=== PATIENT | male | born 1950 | race Two or more races ===

== ENCOUNTER 2021-12-13 11:57 | Inpatient (IN) | payer OTHER ==
[~2021-12-13] VITALS: Ht 180.3 cm; Wt 80.2 kg
[2021-12-13 12:56] LABS: Basophils # (auto) 0.1 10 ^3/uL (0-0.2); Basophils % (auto) 1.1 % (0.0-2.0); Eosinophils # (auto) 0.2 10 ^3/uL (0-0.8); Eosinophils % (auto) 2.6 % (0.0-7.0); Hematocrit 39.1 % (41.0-53.0); Hemoglobin 13.2 g/dL (13.5-17.5); Lymphocytes # (auto) 1.9 10 ^3/uL (0.4-5.4); Lymphocytes % (auto) 28.3 % (10.0-50.0); Mean Corpuscular Hemoglobin 29.1 pg (28.0-32.0); Mean Corpuscular Hgb Conc. 33.7 g/dL (32.0-36.0); Mean Corpuscular Volume 86.4 fL (80.0-100.0); Monocytes # (auto) 0.4 10 ^3/uL (0-1.3); Monocytes % (auto) 5.9 % (0.0-12.0); Neutrophils # (auto) 4.1 10 ^3/uL (1.6-8.6); Neutrophils % (auto) 62.1 % (37.0-80.0); Nucleated Red Blood Cells % 0.1 %; Red Blood Cells 4.53 10^6/uL (4.5-5.90); Red Cell Distribution Width 13.4 % (11.8-14.3); White Blood Cell 6.6 10^3/uL (4.4-10.8)
[2021-12-13 13:01] LABS: Urine Bacteria NONE SEEN /hpf (None Seen); Urine Blood 3+ /uL (Negative); Urine Budding Yeast FEW /hpf (None Seen); Urine Mucus FEW (None Seen); Urine Specific Gravity 1.024 (1.001-1.035); Urine WBC 41 /hpf (0 - 3)
[2021-12-13 13:17] LABS: Albumin 3.3 g/dL (3.4-5.0); BUN/Creatinine Ratio 16.5; Calcium 8.6 mg/dL (8.5-10.1); Potassium 4.4 mmol/L (3.5-5.1)
[2021-12-13 13:19] LABS: Bilirubin, Total 0.3 mg/dL (0.2-1.0); Total Protein 7.2 g/dL (6.4-8.2)
[2021-12-13 13:21] LABS: INR 0.99 (0.9-1.15); Partial Thromboplastin Time 28.3 sec (24.6-33.4)
[2021-12-13] MEDS ORDERED: ACETAMINOPHEN 325 MG TAB PO PRN (23:15)
[2021-12-13] MEDS ORDERED: DEXTROSE (50%) 50ML SYRG IV PRN (23:15)
[2021-12-13] MEDS ORDERED: HYDROcodone-ACET 5/325MG TAB PO PRN (23:15)
[2021-12-13] MEDS ORDERED: ONDANSETRON HCL 4 MG/2 ML VIAL IV PRN (23:15)
[2021-12-13] MEDS ORDERED: cefTRIAXone 1GM/50ML D5W 50 ML IV ONE (23:15)
[2021-12-13] MEDS ORDERED: DOCUSATE SOD 100 MG CAP PO PRN (23:15)
[2021-12-14] MEDS ORDERED: MORPHINE SULFATE INJ 2 MG/ml SYRG IV PRN
[2021-12-14] MEDS ORDERED: NITROGLYCERIN 0.4 MG SL TAB SL PRN
[2021-12-14] MEDS: ACCU-CHEK COMFORT CURVE STRIP VI SCH ×5 (03:04→22:16)
[2021-12-14] MEDS: InsuLIN REG 1unit/0.01ml Soln (100units/ml) SC SCH ×5 (03:04→22:22)
[2021-12-14 05:05] LABS: Basophils # (auto) 0.1 10 ^3/uL (0-0.2); Eosinophils # (auto) 0.2 10 ^3/uL (0-0.8); Eosinophils % (auto) 2.6 % (0.0-7.0); Hemoglobin 13.6 g/dL (13.5-17.5); Lymphocytes % (auto) 22.9 % (10.0-50.0); Mean Corpuscular Hemoglobin 30.5 pg (28.0-32.0); Mean Corpuscular Hgb Conc. 34.9 g/dL (32.0-36.0); Mean Corpuscular Volume 87.4 fL (80.0-100.0); Monocytes # (auto) 0.4 10 ^3/uL (0-1.3); Monocytes % (auto) 5.2 % (0.0-12.0); Neutrophils # (auto) 5.9 10 ^3/uL (1.6-8.6); Neutrophils % (auto) 68.3 % (37.0-80.0); Red Blood Cells 4.46 10^6/uL (4.5-5.90); Red Cell Distribution Width 13.4 % (11.8-14.3); White Blood Cell 8.6 10^3/uL (4.4-10.8)
[2021-12-14 05:18] LABS: Potassium 4.2 mmol/L (3.5-5.1)
[2021-12-14 05:24] LABS: Albumin 3.3 g/dL (3.4-5.0); BUN/Creatinine Ratio 24.6; Calcium 8.6 mg/dL (8.5-10.1)
[2021-12-14 05:31] LABS: Bilirubin, Total 0.4 mg/dL (0.2-1.0); Total Protein 6.5 g/dL (6.4-8.2)
[2021-12-14] MEDS: SODIUM CHLOR 0.9% PF (SALINE LOCK) 10ML VIAL/SYR IV SCH ×3 (06:18→22:16)
[2021-12-14] MEDS: FAMOTIDINE (10MG/ML) 2ML VL IV SCH ×2 (10:48→22:16)
[2021-12-14 16:35] VITALS: BP 130/68
[2021-12-14] MEDS: cefTRIAXone 1GM/50ML D5W 50 ML IV SCH (22:16)
[2021-12-14 23:06] VITALS: BP 154/80
[2021-12-15 05:12] VITALS: BP 145/75
[2021-12-15] MEDS: SODIUM CHLOR 0.9% PF (SALINE LOCK) 10ML VIAL/SYR IV SCH ×3 (05:38→22:16)
[2021-12-15] MEDS: ACCU-CHEK COMFORT CURVE STRIP VI SCH ×4 (05:38→22:16)
[2021-12-15] MEDS: InsuLIN REG 1unit/0.01ml Soln (100units/ml) SC SCH ×4 (05:45→22:19)
[2021-12-15 08:15] VITALS: BP 138/79
[2021-12-15 09:00] VITALS: BP 138/79
[2021-12-15] MEDS: FAMOTIDINE (10MG/ML) 2ML VL IV SCH ×2 (09:56→22:16)
[2021-12-15 13:00] VITALS: BP 178/90
[2021-12-15] MEDS ORDERED: hydrALAZINE HCL 20 MG/ML VL IV PRN (13:00)
[2021-12-15 17:00] VITALS: BP 153/86
[2021-12-15 22:00] VITALS: BP 131/72
[2021-12-15] MEDS: cefTRIAXone 1GM/50ML D5W 50 ML IV SCH (22:16)
[2021-12-16 05:00] VITALS: BP 134/74
[2021-12-16] MEDS: SODIUM CHLOR 0.9% PF (SALINE LOCK) 10ML VIAL/SYR IV SCH (05:47)
[2021-12-16] MEDS: ACCU-CHEK COMFORT CURVE STRIP VI SCH ×2 (05:47→11:37)
[2021-12-16] MEDS: InsuLIN REG 1unit/0.01ml Soln (100units/ml) SC SCH ×2 (05:55→11:52)
[2021-12-16 08:20] VITALS: BP 128/72
[2021-12-16 09:00] VITALS: BP 128/72
[2021-12-16] MEDS ORDERED: CEPH-510 PO (10:25)
[2021-12-16] MEDS: FAMOTIDINE (10MG/ML) 2ML VL IV SCH (10:59)
[2021-12-16 13:00] VITALS: BP 140/80
[2021-12-16 15:16] VITALS: BP 140/50
== END 2021-12-16 16:18 | disposition home or self-care (01) | DRG 699 ==
LOC: ER 11:57 → TELE 23:56 → EAST 12-14 12:29
PROVIDERS: ADMIT Nurse Practitioner Family; ATTEND Internal Medicine
DX: N32.9 Bladder disorder, unspecified (principal); N39.0 Urinary tract infection, site not specified; N40.0 Benign prostatic hyperplasia without lower urinary tract symptoms; E11.65 Type 2 diabetes mellitus with hyperglycemia; I10 Essential (primary) hypertension; Z87.891 Personal history of nicotine dependence; Z90.79 Acquired absence of other genital organ(s); Z20.822 Contact with and (suspected) exposure to COVID-19
CPT/HCPCS: 36415; 74176; 80053; 81001; 82962; 83036; 85025; 85610; 85730; 87086; 87426; 96365; G0378; J0696; J1815; J3490

== ENCOUNTER 2023-09-10 12:06 | Inpatient (IN) | payer OTHER ==
[~2023-09-10] VITALS: Ht 175.3 cm; Wt 76.0 kg
[~2023-09-10 12:06] MED LIST: CEPH-510 PO
[2023-09-10 12:21] LABS: Basophils # (auto) 0.1 10 ^3/uL (0-0.2); Eosinophils # (auto) 0.3 10 ^3/uL (0-0.8); Eosinophils % (auto) 3.3 % (0.0-7.0); Hematocrit 46.2 % (41.0-53.0); Hemoglobin 16.3 g/dL (13.5-17.5); Lymphocytes # (auto) 2.5 10 ^3/uL (0.4-5.4); Lymphocytes % (auto) 30.6 % (10.0-50.0); Mean Corpuscular Hemoglobin 30.3 pg (28.0-32.0); Mean Corpuscular Hgb Conc. 35.2 g/dL (32.0-36.0); Mean Corpuscular Volume 86.1 fL (80.0-100.0); Monocytes # (auto) 0.4 10 ^3/uL (0-1.3); Monocytes % (auto) 5.3 % (0.0-12.0); Neutrophils # (auto) 4.8 10 ^3/uL (1.6-8.6); Neutrophils % (auto) 59.8 % (37.0-80.0); Nucleated Red Blood Cells % 0.1 %; Red Blood Cells 5.36 10^6/uL (4.5-5.90); Red Cell Distribution Width 13.6 % (11.8-14.3)
[2023-09-10 12:42] LABS: Alanine Aminotransferase 12 U/L (7-40); Albumin 4.4 g/dL (3.2-4.8); Alkaline Phosphatase 134 U/L (46-116); Anion Gap 5 (5-15); Aspartate Aminotransferase 8 U/L (13-40); BUN/Creatinine Ratio 9.2 (10.0-20.0); Blood Urea Nitrogen 9 mg/dL (9-23); Calcium 9.6 mg/dL (8.5-10.1); Carbon Dioxide 25 mmol/L (20-30); Chloride 105 mmol/L (98-107); Glucose 367 mg/dL (74-106); Potassium 4.3 mmol/L (3.5-5.1); Sodium 135 mmol/L (136-145)
[2023-09-10 12:43] LABS: Bilirubin, Total 0.5 mg/dL (0.2-1.0)
[2023-09-10 12:49] LABS: Urine Bacteria None Seen /hpf (None Seen)
[2023-09-10 12:57] LABS: Urine Blood Negative /uL (Negative); Urine Clarity Clear (Clear); Urine Color Light-Yellow (Yellow); Urine Protein, UAD 1+ (Negative); Urine Specific Gravity 1.036 (1.001-1.035); Urine Urobilinogen Normal (Negative); Urine WBC 1 /hpf (0 - 3)
[2023-09-10] MEDS: SODIUM CHLORIDE 0.9% 1,000 ML IVB ONE (12:57)
[2023-09-10 13:08] LABS: Amphetamine Screen, Urine Neg (NEGATIVE); Barbiturate Scree,Urine Neg (NEGATIVE); Benzodiazephine Screen, Urine Neg (NEGATIVE); Cocaine Screen, Urine Neg (NEGATIVE); Opiate Scree,Urine Neg (NEGATIVE)
[2023-09-10 13:09] LABS: Cannabinoid Screen, Urine Neg (NEGATIVE); Phencyclidine Screen, Urine Neg (NEGATIVE)
[2023-09-10] MEDS ORDERED: DEXTROSE (50%) 50ML SYRG IV PRN (17:15)
[2023-09-10] MEDS ORDERED: MORPHINE SULFATE INJ 2 MG/ml SYRG IV PRN (17:15)
[2023-09-10] MEDS ORDERED: NITROGLYCERIN 0.4 MG SL TAB SL PRN (17:15)
[2023-09-10 17:31] LABS: Magnesium 1.7 mg/dL (1.6-2.6)
[2023-09-10 17:32] LABS: Phosphorus 2.9 mg/dL (2.4-5.1)
[2023-09-10 17:40] LABS: Amphetamine Screen, Urine Neg (NEGATIVE); Barbiturate Scree,Urine Neg (NEGATIVE); Benzodiazephine Screen, Urine Neg (NEGATIVE); Cocaine Screen, Urine Neg (NEGATIVE); Opiate Scree,Urine Neg (NEGATIVE); Phencyclidine Screen, Urine Neg (NEGATIVE)
[2023-09-10 17:41] LABS: Cannabinoid Screen, Urine Neg (NEGATIVE)
[2023-09-10] MEDS: ACCU-CHEK COMFORT CURVE STRIP VI SCH (17:59)
[2023-09-10] MEDS: InsuLIN REG 1unit/0.01ml Soln (100units/ml) SC SCH (18:03)
[2023-09-10] MEDS: ENOXAPARIN SOD 40 MG/0.4 ML SYRINGE SC SCH (18:58)
[2023-09-10 19:00] LABS: INR 1.03 (0.9-1.15); Prothrombin Time 10.9 sec (9.3-11.8)
[2023-09-10 21:00] VITALS: BP 139/87; PULSE 81; RESP 18; TEMP 97.5; O2SAT 98
[2023-09-10] MEDS ORDERED: LORazepam 2MG/ML-1ML VIAL IV PRN (21:45)
[2023-09-10] MEDS: ATORVASTATIN 20 MG TAB PO SCH (22:00)
[2023-09-10] MEDS: METOPROLOL TARTRATE 50 MG TAB PO SCH (22:00)
[2023-09-10 23:30] VITALS: BP 139/87; PULSE 81; RESP 18; TEMP 97.5; O2SAT 98
[2023-09-11] VITALS (8 sets, daily range): BP systolic 109–154; BP diastolic 67–83; PULSE 66–80; RESP 16–19; TEMP 97.3–98.2; O2SAT 95–97
[2023-09-11] MEDS ORDERED: GLIP10TA21 PO (00:23)
[2023-09-11 07:29] LABS: LDL Cholesterol 151 mg/dL (< 100); Triglycerides 222 mg/dL (< 150)
[2023-09-11 07:30] LABS: HDL Cholesterol 34 mg/dL (40-59)
[2023-09-11 07:31] LABS: Cholesterol 216 mg/dL (< 200)
[2023-09-11 08:26] LABS: Hepatitis B Surface Antigen Negative (Negative)
[2023-09-11 08:48] LABS: Hepatitis C Antibody Negative (Negative)
[2023-09-11] MEDS: ASPirin 81 mg TAB PO SCH (09:32)
[2023-09-11] MEDS ORDERED: DEXTROSE (50%) 50ML SYRG IV PRN (10:00)
[2023-09-11] MEDS: ACCU-CHEK COMFORT CURVE STRIP VI SCH (11:30)
[2023-09-11] MEDS: ATORVASTATIN 20 MG TAB PO SCH (12:36)
[2023-09-11] MEDS: INSULIN LANTUS (GLARGINE) 1 /0.01ml (100units/ml) SC ONE (12:39)
[2023-09-11] MEDS: InsuLIN REG 1unit/0.01ml Soln (100units/ml) SC SCH ×2 (14:07→21:49)
[2023-09-11] MEDS: ASPirin 81 mg TAB PO ONE (16:45)
[2023-09-11] MEDS: CLOPIDOGREL BISULFATE 75 MG TAB PO ONE (18:24)
[2023-09-11] MEDS: ATORVASTATIN 20 MG TAB PO ONE (18:24)
[2023-09-11] MEDS: INSULIN LANTUS (GLARGINE) 1 /0.01ml (100units/ml) SC SCH (21:51)
[2023-09-12 05:00] VITALS: BP 137/71; PULSE 66; RESP 17; TEMP 97.9; O2SAT 94
[2023-09-12 05:57] LABS: Basophils # (auto) 0.1 10 ^3/uL (0-0.2); Basophils % (auto) 0.7 % (0.0-2.0); Eosinophils # (auto) 0.3 10 ^3/uL (0-0.8); Eosinophils % (auto) 3.3 % (0.0-7.0); Hematocrit 39.9 % (41.0-53.0); Hemoglobin 14.1 g/dL (13.5-17.5); Lymphocytes # (auto) 2.5 10 ^3/uL (0.4-5.4); Lymphocytes % (auto) 23.9 % (10.0-50.0); Mean Corpuscular Hemoglobin 30.5 pg (28.0-32.0); Mean Corpuscular Hgb Conc. 35.2 g/dL (32.0-36.0); Mean Corpuscular Volume 86.7 fL (80.0-100.0); Monocytes # (auto) 0.7 10 ^3/uL (0-1.3); Monocytes % (auto) 6.3 % (0.0-12.0); Neutrophils # (auto) 6.9 10 ^3/uL (1.6-8.6); Neutrophils % (auto) 65.8 % (37.0-80.0); Nucleated Red Blood Cells % 0.1 %; Red Blood Cells 4.61 10^6/uL (4.5-5.90); Red Cell Distribution Width 13.2 % (11.8-14.3); White Blood Cell 10.4 10^3/uL (4.4-10.8)
[2023-09-12] MEDS: INSULIN LANTUS (GLARGINE) 1 /0.01ml (100units/ml) SC SCH (05:57)
[2023-09-12 06:05] LABS: Chloride 104 mmol/L (98-107); Potassium 3.7 mmol/L (3.5-5.1); Sodium 140 mmol/L (136-145)
[2023-09-12 06:06] LABS: Anion Gap 8 (5-15); Carbon Dioxide 28 mmol/L (20-30)
[2023-09-12 06:07] LABS: Calcium 9.3 mg/dL (8.7-10.4)
[2023-09-12 06:11] LABS: BUN/Creatinine Ratio 20.2 (10.0-20.0); Blood Urea Nitrogen 17 mg/dL (9-23); Glucose 109 mg/dL (74-106)
[2023-09-12 07:07] LABS: RPR Non Reactive (Non Reactive)
[2023-09-12 08:00] VITALS: PULSE 66; PULSE 68; RESP 16; O2SAT 98
[2023-09-12 09:00] VITALS: BP 132/76; PULSE 68; RESP 18; TEMP 98.1; O2SAT 98
[2023-09-12 11:29] LABS: Folate (Folic Acid) 18.57 ng/mL (>5.38)
[2023-09-12] MEDS: ASPirin 81 mg TAB PO SCH (12:12)
[2023-09-12] MEDS: CLOPIDOGREL BISULFATE 75 MG TAB PO SCH (12:13)
[2023-09-12 13:00] VITALS: BP 131/73; PULSE 75; RESP 18; TEMP 97.4; O2SAT 96
[2023-09-12] MEDS ORDERED: ASPI-325 PO (15:25)
[2023-09-12] MEDS ORDERED: CLOP75TA70 PO (15:25)
[2023-09-12] MEDS ORDERED: LISI-275 PO (15:25)
[2023-09-12] MEDS ORDERED: ATOR20TA50 PO (15:25)
[2023-09-12] MEDS ORDERED: INSU1INJ3 SC (15:33)
[2023-09-12] MEDS ORDERED: INSLANTI SC (15:33)
[2023-09-12 15:48] VITALS: BP 131/73; PULSE 75; RESP 18; TEMP 97.4; O2SAT 96
[2023-09-12] MEDS ORDERED: ATORVASTATIN 20 MG TAB PO SCH (22:00)
== END 2023-09-12 17:00 | disposition home or self-care (01) | DRG 66 ==
LOC: ER 12:06 → TELE-CENTR 17:13 → TELE 17:13 → TELE-CENTR 20:57
PROVIDERS: ADMIT Internal Medicine Pulmonary Disease; ATTEND Internal Medicine Pulmonary Disease
DX: I63.9 Cerebral infarction, unspecified (principal); R26.81 Unsteadiness on feet; I10 Essential (primary) hypertension; I45.10 Unspecified right bundle-branch block; E78.5 Hyperlipidemia, unspecified; Z79.82 Long term (current) use of aspirin; Z79.899 Other long term (current) drug therapy; E11.65 Type 2 diabetes mellitus with hyperglycemia; R47.81 Slurred speech
CPT/HCPCS: 36415; 70450; 70551; 71045; 80048; 80053; 80061; 80307; 81001; 82607; 82746; 82962; 83036; 83735; 84100; 84443; 84484; 85025; 85610; 86592; 86803; 87340; 93005; 93306; 93886; 96360; 96372; 97110; 97116; 97163; 97530; G0378; J1815